=== PATIENT | female | born 2005 | race Caucasian/White ===

== ENCOUNTER 2023-04-06 08:29 | Emergency (ER) | payer OTHER, SELFPAY ==
[2023-04-06 08:46] VITALS: BP 133/83; PULSE 61; RESP 18; TEMP 36.6; O2SAT 99; BMI 31.8
--- NOTE | 2023-04-06 08:57 | XR_ITS ---
The [place] [id number] Patient Name: RYAN LUNA MRN: [id number] date: 2005 Sex: F Assigned Patient Location: ER Current Patient Location: ED.MAIN Accession/Order Number: [id number] Exam Date: 04/06/2023 09:05 Report Date: 04/06/2023 09:21 At the request of: MC SHIN Procedure: XR ankle LT min 3V EXAM: XR ankle LT min 3V, XR foot LT min 3V HISTORY: pain left ankle and foot pain COMPARISON: None. TECHNIQUE: AP, oblique and lateral views of the left ankle and foot. Impression: 1. No acute fracture or malalignment. 2. No ankle joint effusion. Electronically authenticated by: LUCA NEGRETE Date: 04/06/2023 09:21
--- NOTE | 2023-04-06 08:57 | XR_ITS ---
The [address] [address] Patient Name: RYAN LUNA MRN: [id number] date: 2005 Sex: F Assigned Patient Location: ER Current Patient Location: ED.MAIN Accession/Order Number: [id number] Exam Date: 04/06/2023 09:05 Report Date: 04/06/2023 09:21 At the request of: MC SHIN Procedure: XR foot LT min 3V EXAM: XR ankle LT min 3V, XR foot LT min 3V HISTORY: pain left ankle and foot pain COMPARISON: None. TECHNIQUE: AP, oblique and lateral views of the left ankle and foot. Impression: 1. No acute fracture or malalignment. 2. No ankle joint effusion. Electronically authenticated by: LUCA NEGRETE Date: 04/06/2023 09:21
--- NOTE | 2023-04-06 09:00 | ED.GENADUL1 ---
HPI - General Adult General Chief complaint: Extremity Injury, Lower Stated complaint: LOWER EXTREMITY INJURY Time Seen by Provider: 04/06/23 08:57 Source: patient and family Mode of arrival: walk-in History of Present Illness HPI narrative: patient is a 17-year-old female who is presenting to the Emergency Room with chief complaint of left ankle/foot pain. Patient says that last night she slid off the couch and injured the left lateral aspect of her foot, left lateral malleolus. Patient is working at [employer] October, she is working the games and on her feet all day. She is not due to be working today. Patient also has a concert that she is going to as well tomorrow night in [place]. Patient has not injured her left ankle or foot before. Patient is in track and field at [employer], she throws it [employer]. Patient has a friend at bedside and her mother. Patient states that she is not , she has a implant for an IUD, has not had any tobacco intercourse recently and last period was back in December. Patient does not want any type of test on before medication or x-rays done. Patient did not fall, did not hit her head, no other acute complaints besides sliding out of the couch. Related Data Home Medications Medication Instructions Recorded Confirmed No Known Home Medications 04/06/23 04/06/23 Allergies Allergy/AdvReac Type Severity Reaction Status Date / Time No Known Drug Allergies Allergy Verified 04/06/23 08:45 Review of Systems ROS Narrative All systems are negative except as noted/marked. All systems reviewed and otherwise negative. Exam Narrative: Exam Narrative: Nurses note and vital signs reviewed and patient is not hypoxic. General: The patient appears well and in no apparent distress. Patient is resting comfortably on cart. Patient is not toxic, lethargic, or listless Skin: Warm, dry, no pallor noted. There is no rash noted. No petechiae, purpura. Head: Normocephalic, atraumatic Eye: Normal conjunctiva, no drainage, EOMI. PERRL Ears, Nose, Mouth, and Throat: oral mucosa is moist. Cardiovascular: Regular Rate and Rhythm, no murmur, gallop, rub Respiratory: Patient is in no distress, no accessory muscle use, lungs are clear to auscultation, no wheezing, rales or rhonchi Musculoskeletal: Patient has full range of motion of all of the extremities except to the left ankle and foot. Patient has mild tenderness to palpation to left Achilles tendon, it is still intact. Patient has mild tenderness to left lateral malleolus, no tenderness to palpation to the left medial malleolus. Patient has moderate tenderness to palpation of the left 5th metatarsal, moderate tenderness to palpation at the base of left 5th metatarsal. Patient has no other pain to the mid foot, no pain to the plantar aspect, no pain to calcaneus. Mild swelling to left lateral foot, no tenderness to the 5 toes the left foot, no other acute complaints. no motor, sensory, or focal neurological deficits Neurological: A&O x3, normal speech Psychiatric: Cooperative Constitutional: Vital Signs, click to edit/add: Vital Signs - 24 hr 04/06/23 08:46 Temperature 97.8 F Pulse Rate [Monito r] 61 Respiratory Rate 18 Blood Pressure [Ri ght Arm] 133/83 H Pulse Oximetry 99 Oxygen Delivery Me thod Room Air Course Vital Signs Vital signs: Vital Signs Temperature 97.8 F 04/06/23 08:46 Pulse Rate 61 04/06/23 08:46 Respiratory Rate 18 04/06/23 08:46 Blood Pressure 133/83 H 04/06/23 08:46 Pulse Oximetry 99 04/06/23 08:46 Oxygen Delivery Method Room Air 04/06/23 08:46 Temperature 97.8 F 04/06/23 08:46 Pulse Rate 61 04/06/23 08:46 Respiratory Rate 18 04/06/23 08:46 Blood Pressure 133/83 H 04/06/23 08:46 Pulse Oximetry 99 04/06/23 08:46 Oxygen Delivery Method Room Air 04/06/23 08:46 Medical Decision Making [facility] Narrative Medical decision making narrative: procedure note: patient was placed in a left Jarod wrap, Aircast, and postop shoe. Patient did not want crutches. Splint was assisted with . the patient was neurovascularly intact before and after the splint was placed. the affected bones/injured area had proper alignment in a splint. Education on splint care at home was given at bedside. Patient and family have no questions at discharge. Patient's left foot and ankle x-ray show no acute fracture, dislocation or acute abnormality. Patient will alternate Tylenol Motrin for pain, patient also use ice 20 minutes on, 20 minutes off. Patient followed PCP for reevaluation next week. Patient is weightbearing as tolerated. No questions at discharge. Discharge Plan Discharge Chief Complaint: Extremity Injury, Lower Clinical Impression: Contusion of foot, Ankle sprain and strain, Foot sprain Patient Disposition: Home, Self-Care Prescriptions / Home Meds: No Action No Known Home Medications Instructions: Ankle Sprain (ED), Contusion in Adults (ED), Splint Care (ED), Ankle Stirrup Splint (ED), Foot Sprain (ED), P.R.I.C.E. Treatment (ED) Additional Instructions: Ice 20 minutes on, 20 minutes off. Follow-up with PCP as needed for further evaluation. Weightbearing as tolerated. Alternate Tylenol Motrin for pain. Stand Alone Forms: Portal Instructions Referrals: John Guardado MD [Physician] - 1 week CAIN QUIÑONES [Primary Care Provider] - 1 week
[2023-04-06] MEDS: IBUPROFEN 400 MG TABLET 800 MG PO (09:13)
--- NOTE | 2023-04-06 10:39 | PC.NURSE ---
THIS NURSE UPDATED PT ON DELAY
--- NOTE | 2023-04-06 11:00 | PC.NURSE ---
THIS NURSE AND IN WITH PATIENT TO DISCUSS TREATMENT AND FOLLOW UP CARE - PT STATES SHE WILL NOT BE WEARING THE [place] WRAP AND ORTHO SHOE OR DOING THE [place] BC IF ITS NOT BROKE THERE IS NOTHING TO HEAL PT AT TIMES ARGUMENTATIVE IN REGARD TO TX PLAN W DR SHIN PT GIVEN [place] WRAP AIR CAST AND ORTHO SHOE AND EDUCATED ON TYLENOL MOTRIN DOSING PT TAKES SUPPLIES AND WALKS W GAIT STEADY OUT THE DOOR PT WEARING FLIP FLOPS
== END 2023-04-06 11:02 | disposition home or self-care (01) ==
PROVIDERS: Emergency Provider Emergency Medicine; Family Provider Physician Assistant; PCP Family Medicine
DX: S93.602A Unspecified sprain of left foot, initial encounter (principal); S90.32XA Contusion of left foot, initial encounter; S93.402A Sprain of unspecified ligament of left ankle, initial encounter; S96.912A Strain of unspecified muscle and tendon at ankle and foot level, left foot, initial encounter; X50.9XXA Other and unspecified overexertion or strenuous movements or postures, initial encounter
CPT/HCPCS: 73610; 73630; 99284